=== PATIENT | male | born 1965 | race Caucasian/White ===

== ENCOUNTER 2016-09-07 18:11 | Emergency (ER) | payer BC ==
--- OUTSIDE RECORDS SUMMARY | 2016-09-07 18:44 | XMS REPORT | Continuity of Care Document ---
:1965 Author Organization [facility] ([facility]) Address [address] [place] [address] Phone [phone] Care Team Providers Name Role Phone Leisa Leroy Primary Care Provider [phone] Source Comments This disclosure is being made pursuant to the Care Everywhere program, applicable federal and state laws, and may not contain all informaitonavailable regarding this patient.[facility] ([facility]) Active Allergies and Adverse Reactions Allergen Noted Date Severity Reactions Comments Erythromycin 05/10/2010 Nausea & Vomiting Current Medications Prescription Sig. Disp. Refills Start Date End Date Status EZETIMIBE (ZETIA PO) Take 10 mg by mouth Active daily. MULTI-VITAMIN PO Take by mouth. Active SIMVASTATIN PO Take 40 mg by mouth Active daily. omeprazole Take 20 mg by mouth Active (PRILOSEC) 20 mg daily as needed. extended release capsule fluticasone use 1 [place] into the Active (FLONASE) 50 nose as needed. mcg/Actuation nasal spray nabumetone (RELAFEN) Take 1 Tab by mouth 60 Tab 5 04/25/2011 Active 500 mg tablet 2 times daily. Indications: inflammation topiramate 25 mg Take 2 tablets (50 60 tablet 11 10/29/2015 Active tablet mg total) by mouth at bedtime. 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 Other physical therapy 07/13/2010 PAIN IN [place] 07/13/2010 Social History Tobacco Use Types Packs/Day Years Used Date Never Smoker Smokeless Tobacco: Never Used Tobacco Cessation:Counseling Given: No Comments: Alcohol Use Drinks/Week oz/Week Comments Yes 1 Glasses of wine 0.0 2-3 Cans of beer 1 Standard drinks or equivalent Last Filed Vital Signs Vital Sign Reading Time Taken Blood Pressure 117/75 10/05/2015 8:31 AM CDT Pulse 72 10/05/2015 8:31 AM CDT Temperature 36.8 C (98.2 F) 12/03/2010 1:50 PM CDT Respiratory Rate 16 10/05/2015 8:31 AM CDT Height 1.85 m (6' 0.83") 10/05/2015 8:39 AM CDT Weight 92.5 kg (203 lb 14.8 oz) 10/05/2015 8:31 AM CDT Body Mass Index 27.03 10/05/2015 8:31 AM CDT Oxygen Saturation 99% 12/03/2010 2:53 PM CDT Plan of Care Health Maintenance Due Date Last Done Comments Hepatitis B Vaccine (1 of 3 - Primary Series) 1965 Tdap Vaccine 1978 Lipid Disorder Screening 1985 MMR Vaccine 1985 Td Vaccine 1985 Influenza Vaccine: Seasonal (#1) 02/01/2016 Results from Last 3 Months Not on file
[2016-09-07] MEDS ORDERED: HYDROmorphone HCL 1 MG/ML DISP.SYRIN ONE ×2 (18:48→19:55)
[2016-09-07] MEDS ORDERED: diphenhydrAMINE HCL 50 MG/ML VIAL ONE (18:48)
[2016-09-07] MEDS: diphenhydrAMINE HCL 50 MG/ML VIAL IV ONE (18:50)
[2016-09-07] MEDS: HYDROmorphone HCL 1 MG/ML DISP.SYRIN IV ONE ×2 (18:51→20:01)
--- NOTE | 2016-09-07 20:05 | ERNOTE ---
<GarrybasimAmarjitJuma - Last Filed: 09/07/16 20:00> Headache ER HPI - General Presenting Symptoms: headache Time Seen by Provider: 09/07/16 18:33 Source: patient Exam Limitations: no limitations - Immun/Allergies/Home Medications Immunizations: IMMUNIZATION HX Immunizations Up to Date Yes History of Influenza Vaccine Yes Hx Pneumococcal Vaccination No Allergies/Adverse Reactions: Allergies erythromycin base [Erythromycin Base] Adverse Reaction (Mild, Verified 09/07/16 18:19) stomach pain Home Medications: HOME MEDICATIONS acetaZOLAMIDE [Acetazolamide (Diamox)] 500 mg PO BID 11/11/13 [Last Taken Unknown] Ascorbic Acid [Vitamin C] 500 mg PO DAILY 06/16/16 [Last Taken Unknown] Ezetimibe [Zetia] 10 mg PO HS 06/16/16 [Last Taken Unknown] Hydromorphone HCl [Dilaudid] 4 mg PO Q6H PRN 06/16/16 [Last Taken Unknown] Multivitamins [Multivitamin Miya] 1 cap PO DAILY 06/16/16 [Last Taken Unknown] Omeprazole [Prilosec] 20 mg PO DAILY 06/16/16 [Last Taken Unknown] Simvastatin [Zocor] 40 mg PO HS 06/16/16 [Last Taken Unknown] Oxycodone HCl/Acetaminophen [Percocet 5-325 mg Tablet] 1 each PO Q4H PRN #30 tablet 06/17/16 [Last Taken Unknown] - History of Present Illness Narrative: History presents with a headache patient has known pseudotumor cerebri.H He has had multiple spinal taps to decrease the pressure he feels as though this is the problem he is having and he rates his pain as a 10 over 10. Timing of Headache: gradual Context Headache: Present: other - cerebral hypertension Quality: Present: throbbing Severity Maximum: Present: severe Severity-Currently: Present: severe Headache frequency: Present: chronic headaches Review of Systems - Review of Systems Constitutional: Present: See HPI EYE: Present: no symptoms reported ENT: Present: no symptoms reported Respiratory: Present: no symptoms reported Cardiology: Present: no symptoms reported Gastrointestinal/Abdominal: Present: no symptoms reported Genitourinary: Present: no symptoms reported Musculoskeletal: Present: no symptoms reported Skin: Present: no symptoms reported Neurological: Present: See HPI Endocrine: Present: no symptoms reported Hematologic/Lymphatic: Present: no symptoms reported Psych: Present: no symptoms reported - Patient's Past Medical History Patient History - Medical: GERD, Other - pseudotumor cerebri Patient History - Cardiac/Respiratory: Other Patient History - Cancer: No Hx of Cancer Patient History - Surgical Procedures: Other Patient History - Other: None - Family History Brother Family History - Medical: Other Family History - Cardiac/Respiratory: No pertinent hx Father Family History - Medical: Other Family History - Cardiac/Respiratory: No pertinent hx Mother Family History - Medical: Other Family History - Cardiac/Respiratory: No pertinent hx Sister Family History - Medical: Other Family History - Cardiac/Respiratory: No pertinent hx - Social History Living Situations: spouse Abuse History: No History of abuse Psych History: Hx of Anxiety, Hx of Depression Smoking Status: Never smoker Have you smoked in the past 12 months: No Do you dip or chew tobacco: No Alcohol Use: occasionally Drug Use: none - Immunizations Immunizations Up to Date: Yes Hx Pneumococcal Vaccination: No History of Influenza Vaccine: Yes Physical Exam - Physical Exam General Appearance: Present: wd/wn, alert, severe distress Eye Exam: Normal inspection: bilateral, PERRL: bilateral Ears, Nose, Throat: Present: normal ENT inspection, H, normal pharynx Neck: Present: normal inspection, nontender Respiratory: Present: no respiratory distress, normal breath sounds, no accessory muscle use, chest nontender, lungs clear Cardiovascular/Chest: Present: regular rate, rhythm, no murmur, normal peripheral pulses Gastrointestinal/Abdominal: Present: normal bowel sounds, nontender, nondistended, soft, no organomegaly Rectal Exam: Present: deferred Back Exam: Present: normal inspection, normal range of motion Extremity Exam: Present: normal inspection, non-tender, no edema, normal range of motion Neurological Exam: Present: alert, oriented, normal mood/affect Skin Exam: Present: normal color, warm/dry Lymphatic Exam: Present: no adenopathy ED Progress - Vital Signs Patient's Vital Signs:: I have reviewed the patient's vital signs. Vital Signs: Vital Signs 09/07/16 18:14 Temperature 36.8 C Pulse Rate 90 Respiratory 15 Rate Blood Pressure 129/90 O2 Sat by Pulse 97 Oximetry - Progress/Reassessment Chief Complaint: Headache Progress:: Improved - Transfer of Care Physician Sign Out: Juma Velasquez Receiving Physician: Gregorio Presley Departure Clinical Impression: Pseudotumor cerebri syndrome - Departure Disposition: Home Follow Up Needed Condition: Fair Instructions: Idiopathic Intracranial Hypertension Additional Instructions: Work with your regular doctor to get further referral, again. Use your dilaudid as needed. Return to ER if necessary Referrals: Leisa Leroy MD [Primary Care Provider] - <Gregorio Presley - Last Filed: 09/08/16 00:40> Headache ER HPI - Immun/Allergies/Home Medications Immunizations: IMMUNIZATION HX Immunizations Up to Date Yes History of Influenza Vaccine Yes Hx Pneumococcal Vaccination No ED Progress - Vital Signs Vital Signs: Vital Signs 09/07/16 18:14 Temperature 36.8 C Pulse Rate 90 Respiratory 15 Rate Blood Pressure 129/90 O2 Sat by Pulse 97 Oximetry - Progress/Reassessment Progress Note-Subjective: 09/07/16 21:01 Pt states he is "as good as I ever get". He is frustrated because he cannot get an appointment back at [facility]. He has been seen there twice but now has not been there for 18 months. He has "new" symptoms since he was seen there but has been seen and evaluated by his PCP since they started 90 days ago. The new symptoms are scalp tingling on the left parietal scalp and ear and sound like a peripheral neuropathy. Encouraged the patient to speak with his PCP about more local referrals that may be more responsive to his needs
[2016-09-07 21:39] VITALS: BP 135/89
== END 2016-09-07 21:19 | disposition home or self-care (01) ==
LOC: ER 18:11
DX: G93.2 Benign intracranial hypertension (principal); R51 Headache